=== PATIENT | female | born 1935 | race Caucasian/White ===

== ENCOUNTER 2018-01-16 16:47 | Emergency (ER) | payer MEDICARE, MEDICAID ==
[~2018-01-16] VITALS: Ht 147.3 cm; Wt 45.5 kg
[2018-01-16] MEDS ORDERED: acetaminophen 325mg/10.15ml oral unit dose solution PO ONE (17:55)
[2018-01-16] MEDS ORDERED: HYDR-569 PO (18:53)
[2018-01-16 19:47] VITALS: BP 164/79
== END 2018-01-16 19:51 | disposition home or self-care (01) ==
LOC: ER 16:48
DX: S42.212A Unspecified displaced fracture of surgical neck of left humerus, initial encounter for closed fracture (principal); I10 Essential (primary) hypertension; E78.00 Pure hypercholesterolemia, unspecified; Z79.899 Other long term (current) drug therapy; W01.0XXA Fall on same level from slipping, tripping and stumbling without subsequent striking against object, initial encounter; Y93.K1 Activity, walking an animal; Y92.89 Other specified places as the place of occurrence of the external cause; Y99.8 Other external cause status
CPT/HCPCS: 70450; 73060; 99284

== ENCOUNTER → 2018-02-13 | Outpatient (CLI) | payer MEDICARE, MEDICAID ==
[~2018-02-13] MED LIST: HYDR-4383 PO
[2018-02-13 15:41] VITALS: BP 202/80
== END | disposition home or self-care (01) ==
LOC: ORTHO 16:46
PROVIDERS: ATTEND Nurse Practitioner Family
DX: S42.212A Unspecified displaced fracture of surgical neck of left humerus, initial encounter for closed fracture (principal); W01.0XXA Fall on same level from slipping, tripping and stumbling without subsequent striking against object, initial encounter; Y93.89 Activity, other specified; Y92.89 Other specified places as the place of occurrence of the external cause; Y99.8 Other external cause status
CPT/HCPCS: 73030; 99213